=== PATIENT | male | born 1985 | race American Indian/Alaskan Native ===

== ENCOUNTER 2020-12-10 15:31 | Emergency (ER) | payer MEDICAID | END 2020-12-11 | LOC: ED 15:31 | DX: R05 Cough (principal); R06.00 Dyspnea, unspecified; Z53.21 Procedure and treatment not carried out due to patient leaving prior to being seen by health care provider ==

== ENCOUNTER 2021-08-23 15:34 | Emergency (ER) | payer MEDICAID ==
[2021-08-23 16:46] VITALS: BP 139/94
[2021-08-23] MEDS ORDERED: HYDROcodone/ACETAMINOPHEN 5-325 MG TAB PO ONE (19:18)
--- NOTE | 2021-08-23 19:49 | Event Note ---
ED Screening Note ED Screening Note: Patient presents with complaints of sudden onset of left inner thigh pain for the past day He denies any injury He states the pain radiates from his groin down to his knee Area is tender to palpation No swelling noted Patient states minimal relief with Goody's powder This initial assessment/diagnostic orders/clinical plan/treatment(s) is/are subject to change based on patients health status, clinical progression and re- assessment by fellow clinical providers in the ED. Further treatment and workup at subsequent clinical providers discretion. Patient/guardian urged not to elope from the ED as their condition may be serious if not clinically assessed and managed. Initial orders include: Ultrasound Meds
--- NOTE | 2021-08-23 20:10 | Vascular Lab Report ---
DUPLEX DOPPLER LOWER EXTREMITY VEINS, LEFT INDICATION / CLINICAL INFORMATION: acute inner thigh pain, no injury. TECHNIQUE: Duplex doppler imaging was performed through the veins of the left lower extremity using venous compr ession and other maneuvers. COMPARISON: None available. FINDINGS: LEFT COMMON FEMORAL VEIN: Negative. LEFT FEMORAL VEIN: Negative. LEFT POPLITEAL VEIN: Negative. LEFT CALF VEINS: Negative. ADDITIONAL FINDINGS: None. IMPRESSION: 1. No sonographic evidence for DVT in the left lower extremity. Signer Name: Daniel Torrez MD Signed: 08/23/2021 8:06 PM Workstation Name: [id number]
== END 2021-08-24 00:05 | disposition home or self-care (01) ==
LOC: ED 15:34
DX: K46.9 Unspecified abdominal hernia without obstruction or gangrene (principal); Z53.21 Procedure and treatment not carried out due to patient leaving prior to being seen by health care provider